=== PATIENT | female | born 1980 | race Caucasian/White ===

== ENCOUNTER → 2021-10-23 | Day surgery (SDC) | payer OTHER ==
[2021-10-22 10:15] VITALS: BMI 25.6
[~2021-10-23] MED LIST: ACETAMINOPHEN 325 MG TABLET (FP) PO PRN; CLINDAMYCIN 900 MG PREMIX BAG IVPB ONE; IBUPROFEN 400 MG TABLET (FP) PO PRN; KETOROLAC TROMETHAMINE 30 MG/1 ML VIAL ONE; LIDOCAINE HCL/PF 2% SDV 5ML VIAL ONE; MIDAZOLAM HCL 2 MG/2 ML SINGLE DOSE VIAL ONE; ONDANSETRON 4 MG/2 ML VIAL IVPUSH PRN; ONDANSETRON 4 MG/2 ML VIAL ONE; ceFAZolin SODIUM 1 GM VIAL ONE
[2021-10-23 16:14] VITALS: BP 127/73; PULSE 74; TEMP 97.7
== END | disposition home or self-care (01) ==
LOC: JASU-SURG 04:12
PROVIDERS: ATTEND Specialist
PROC: 0U5B8ZZ Destruction of Endometrium, Via Natural or Artificial Opening Endoscopic (ICD-10-PCS; principal; 2021-10-23 12:30)
PROC: 0UDB8ZZ Extraction of Endometrium, Via Natural or Artificial Opening Endoscopic (ICD-10-PCS; 2021-10-23 12:30)
DX: N92.0 Excessive and frequent menstruation with regular cycle (principal)
CPT/HCPCS: 81025; 88305-TC; 94760

== ENCOUNTER 2023-12-16 04:15 | Day surgery (SDC) | payer OTHER ==
[2023-12-14 11:19] VITALS: BMI 23.8
[2023-12-16] MEDS ORDERED: LIDOCAINE 1%/EPI 1:100000 (20 ML MULTI DOSE VIAL) ONE (07:18)
[2023-12-16] MEDS ORDERED: LIDOCAINE HCL/PF 2% SDV 5ML VIAL ONE ×2 (09:21→09:29)
[2023-12-16] MEDS ORDERED: SUCCINYLCHOLINE CHLORIDE 200 MG/10 ML SYRINGE ONE (09:22)
[2023-12-16] MEDS ORDERED: MIDAZOLAM HCL 2 MG/2 ML SINGLE DOSE VIAL ONE ×2 (09:22→09:30)
[2023-12-16] MEDS ORDERED: ROCURONIUM BROMIDE 50 MG/5 ML SYRINGE ONE ×2 (09:22→09:25)
[2023-12-16] MEDS ORDERED: FENTANYL CITRATE/PF 50 MCG/ML VIAL ONE ×4 (09:22→12:53)
[2023-12-16] MEDS ORDERED: PROPOFOL 20 ML ONE ×3 (09:22→12:02)
[2023-12-16] MEDS ORDERED: SODIUM CHLORIDE 0.9% P/F 10 ML VIAL IJ ONE (09:31)
[2023-12-16] MEDS ORDERED: SCOPOLAMINE HYDROBROMIDE 1 PATCH PATCH.TD72 ONE (10:09)
[2023-12-16] MEDS ORDERED: CLINDAMYCIN 600MG PREMIX IVPB 600 MG/50 ML BAG IVPB ONE (10:13)
[2023-12-16] MEDS: CLINDAMYCIN 600 MG PREMIX BAG IVPB ONE (10:15)
[2023-12-16] MEDS ORDERED: DEXAMETHASONE SOD PHOSPHATE 4 MG/1 ML VIAL ONE (10:16)
[2023-12-16] MEDS: BUPIVACAINE HCL/PF 0.25% (2.5MG/ML) 10 ML VIAL IJ ONE ×2 (10:37→11:54)
[2023-12-16] MEDS ORDERED: ONDANSETRON 4 MG/2 ML VIAL ONE (11:35)
[2023-12-16] MEDS ORDERED: KETOROLAC TROMETHAMINE 30 MG/1 ML VIAL ONE (11:35)
[2023-12-16] MEDS ORDERED: SUGAMMADEX SODIUM 200 MG/2 ML VIAL ONE (11:52)
[2023-12-16] MEDS: ACETAMINOPHEN 1000 MG/100 ML BAG IVPB ONE ×2 (12:21→12:49)
[2023-12-16] MEDS: LACTATED RINGERS SOLUTION 1,000 ML IV SCH (12:48)
[2023-12-16] MEDS: CLINDAMYCIN 300 MG PREMIX IVPB 300 MG/50 ML BAG IVPB ONE (12:49)
[2023-12-16] MEDS: GABAPENTIN 300 MG CAPSULE PO ONE (12:56)
[2023-12-16] MEDS: ACETAMINOPHEN 500 MG TABLET (FP) PO ONE (12:56)
[2023-12-16] MEDS: ONDANSETRON 4 MG/2 ML VIAL IVPUSH PRN (14:41)
[2023-12-16 16:23] VITALS: RESP 20; TEMP 97.8
[2023-12-16 17:12] VITALS: BP 112/63; PULSE 71
== END 2023-12-16 16:40 | disposition home or self-care (01) ==
LOC: JASU-SURG 04:15
PROVIDERS: ATTEND Specialist
PROC: 8E0W4CZ Robotic Assisted Procedure of Trunk Region, Percutaneous Endoscopic Approach (ICD-10-PCS; 2023-12-16)
PROC: 0U914ZX Drainage of Left Ovary, Percutaneous Endoscopic Approach, Diagnostic (ICD-10-PCS; 2023-12-16)
PROC: 0UT9FZZ Resection of Uterus, Via Natural or Artificial Opening With Percutaneous Endoscopic Assistance (ICD-10-PCS; principal; 2023-12-16 10:00)
DX: N93.9 Abnormal uterine and vaginal bleeding, unspecified (principal); N83.202 Unspecified ovarian cyst, left side
CPT/HCPCS: 49322; 58550; S2900; 81025; 86850; 86900; 86901; 88307-TC; 94760; J0131